=== PATIENT | female | born 1945 | race Caucasian/White ===

== ENCOUNTER 2021-04-08 13:48 | Outpatient (CLI) | payer OTHER ==
[2021-04-09 07:56] LABS: SARS-CoV-2 PCR by NAA Not Detected (NotDetected)
== END 2021-04-08 13:49 | disposition home or self-care (01) ==
LOC: CSHLAB 13:48
PROVIDERS: ATTEND Internal Medicine Gastroenterology
DX: Z20.822 Contact with and (suspected) exposure to COVID-19 (principal)
CPT/HCPCS: U0003; U0005

== ENCOUNTER 2021-04-11 11:24 | Outpatient (CLI) | payer OTHER | END 2021-04-11 11:25 | disposition home or self-care (01) | LOC: CSHRAD 11:24 | PROVIDERS: ATTEND Internal Medicine Gastroenterology | DX: R13.19 Other dysphagia (principal) | CPT/HCPCS: 74220 ==

== ENCOUNTER 2021-06-14 13:37 | Outpatient (CLI) | payer OTHER | END 2021-06-14 13:38 | disposition home or self-care (01) | LOC: CSHMAMMO 13:37 | PROVIDERS: ATTEND Internal Medicine | DX: Z12.31 Encounter for screening mammogram for malignant neoplasm of breast (principal); Z98.890 Other specified postprocedural states | CPT/HCPCS: 77063; 77067 ==

== ENCOUNTER 2022-03-10 10:14 | Outpatient (CLI) | payer OTHER | END 2022-03-10 10:15 | disposition home or self-care (01) | LOC: CSHCT 10:14 | PROVIDERS: ATTEND Internal Medicine | DX: E78.00 Pure hypercholesterolemia, unspecified (principal); Z82.49 Family history of ischemic heart disease and other diseases of the circulatory system; I25.10 Atherosclerotic heart disease of native coronary artery without angina pectoris | CPT/HCPCS: 75571 ==

== ENCOUNTER 2023-01-02 06:02 | Inpatient (IN) | payer MEDICARE ==
[2023-01-02] MEDS ORDERED: Aspirin 325 MG TAB ONE (06:25)
[2023-01-02] MEDS ORDERED: Nitroglycerin 2% Ointment 1 INCH/1 GM Packet ONE (06:25)
[2023-01-02] MEDS ORDERED: Nitroglycerin 0.4 MG TAB 1 EACH ONE (06:26)
[2023-01-02 06:28] LABS: #Basophils 0.1 10x3/uL (0.0-0.2); #Eosinphils 0.1 10x3/uL (0.0-0.5); #Neutrophils 8.9 10x3/uL (1.5-8.4); %Basophils 0.4 % (0.0-2.0); %Eosinophils 0.4 % (0.0-6.0); %Lymphocytes 29.8 % (18.0-47.0); %Monocytes 6.9 % (0.0-10.0); %Neutrophils 62.3 % (40.0-75.0); Hematocrit 39.9 % (34.9-44.5); Hemoglobin 13.8 g/dL (12.0-15.5); Mean Corpuscular HGB CONC 34.6 g/dL (32.0-36.0); Mean Corpuscular Hemoglobin 32.6 pg (27.0-33.0); Mean Corpuscular Volume 94.3 fl (81.6-98.3); Mean Platelet Volume 10.7 fl (7.4-10.4); Platelet Count 229 10x3/uL (150-450); RBC Distribution Width 12.2 % (11.5-14.5); Red Blood Cell (RBC) Count 4.23 10x6/uL (3.90-5.03); White Blood Cell (WBC) Count 14.3 10x3/uL (3.5-10.5)
[2023-01-02] MEDS ORDERED: Acetaminophen 500 MG TAB ONE (06:41)
[2023-01-02 06:45] LABS: ALT (SGPT) 14 U/L (8-55); AST (SGOT) 19 U/L (5-34); Alkaline Phosphatase 40 U/L (40-110); Anion Gap 17 mmol/L (10-20); BUN (Urea Nitrogen) 12 mg/dL (9.8-20.1); Bilirubin, Total 0.5 mg/dL (0.2-1.2); Calc. Creatinine Clearance 0 mL/min (70-130); Calcium 9.4 mg/dL (7.8-10.44); Carbon Dioxide 20 mmol/L (23-31); Chloride 104 mmol/L (98-107); Estimated GFR 72; Globulin 3.4 g/dL (2.4-3.5); Glucose 122 mg/dL (83-110); Potassium 4.1 mmol/L (3.5-5.1); Protein, Total 7.4 g/dL (5.8-8.1); Sodium 137 mmol/L (136-145)
[2023-01-02] MEDS ORDERED: Ondansetron ODT 4 MG TAB PO PRN (10:04)
[2023-01-02] MEDS ORDERED: Acetaminophen 325 MG TAB PO PRN (10:04)
[2023-01-02] MEDS ORDERED: Senokot S 8.6-50 MG TAB PO PRN (10:04)
[2023-01-02] MEDS ORDERED: Calcium Carbonate 500 MG ChewTAB PO PRN (10:04)
[2023-01-02] MEDS ORDERED: Iopamidol 300 61% 100 ML VIAL FS ONE (10:38)
[2023-01-02] MEDS ORDERED: Dextrose 5%-Lactated Ringers 1,000 ML IV SCH (11:00)
[2023-01-02] MEDS ORDERED: HYDROcodone/Acetaminophen 5/325 mg Tablet PO PRN ×2 (12:35→12:44)
[2023-01-02] MEDS ORDERED: Morphine 2 MG/ML VIAL SLOW IVP PRN (12:43)
[2023-01-02 13:21] VITALS: BMI 27.3
[2023-01-02] MEDS: Lactated Ringer's 1,000 ML IV SCH ×2 (14:29→21:08)
[2023-01-02] MEDS: Pantoprazole 40 MG VIAL IVP SCH (14:29)
[2023-01-02] MEDS: Labetalol HCl 100 MG/20 ML VIAL SLOW IVP PRN ×2 (16:49→21:07)
[2023-01-02] MEDS: fentaNYL 50 mcg/mL 1 mL Vial SLOW IVP PRN ×2 (16:51→21:05)
[2023-01-03] MEDS: Pantoprazole 40 MG VIAL IVP SCH ×2 (01:01→13:32)
[2023-01-03] MEDS: fentaNYL 50 mcg/mL 1 mL Vial SLOW IVP PRN (01:01)
[2023-01-03] MEDS ORDERED: Morphine 4 MG/ML VIAL SLOW IVP PRN (01:46)
[2023-01-03] MEDS: Lactated Ringer's 1,000 ML IV SCH ×3 (04:10→21:11)
[2023-01-03 05:32] LABS: #Basophils 0.1 10x3/uL (0.0-0.2); #Monocytes 1.1 10x3/uL (0.0-1.1); #Neutrophils 11.6 10x3/uL (1.5-8.4); %Basophils 0.5 % (0.0-2.0); %Eosinophils 0.3 % (0.0-6.0); %Lymphocytes 14.2 % (18.0-47.0); %Monocytes 7.2 % (0.0-10.0); %Neutrophils 77.3 % (40.0-75.0); Hematocrit 33.9 % (34.9-44.5); Hemoglobin 11.8 g/dL (12.0-15.5); Mean Corpuscular HGB CONC 34.8 g/dL (32.0-36.0); Mean Corpuscular Hemoglobin 33.2 pg (27.0-33.0); Mean Corpuscular Volume 95.5 fl (81.6-98.3); Platelet Count 195 10x3/uL (150-450); RBC Distribution Width 12.4 % (11.5-14.5); Red Blood Cell (RBC) Count 3.55 10x6/uL (3.90-5.03)
[2023-01-03] MEDS: Levothyroxine Sodium 75 MCG TAB PO SCH (05:36)
[2023-01-03 05:48] LABS: ALT (SGPT) 12 U/L (8-55); AST (SGOT) 20 U/L (5-34); Albumin 3.4 g/dL (3.4-4.8); Alkaline Phosphatase 30 U/L (40-110); Anion Gap 14 mmol/L (10-20); BUN (Urea Nitrogen) 7 mg/dL (9.8-20.1); Bilirubin, Total 0.5 mg/dL (0.2-1.2); Calc. Creatinine Clearance 64 mL/min (70-130); Calcium 8.5 mg/dL (7.8-10.44); Carbon Dioxide 20 mmol/L (23-31); Chloride 105 mmol/L (98-107); Estimated GFR 77; Globulin 2.9 g/dL (2.4-3.5); Glucose 118 mg/dL (83-110); Lipase 195 U/L (8-78); Potassium 4.2 mmol/L (3.5-5.1); Protein, Total 6.3 g/dL (5.8-8.1); Sodium 135 mmol/L (136-145)
[2023-01-03] MEDS: Ondansetron PF 4 MG/2 ML Vial IVP PRN ×2 (11:04→17:26)
[2023-01-03] MEDS: Labetalol HCl 100 MG/20 ML VIAL SLOW IVP PRN (12:07)
[2023-01-03] MEDS ORDERED: Morphine 2 MG/ML VIAL SLOW IVP PRN (12:23)
[2023-01-03] MEDS ORDERED: Mag-Al 1200 mg/1200 mg/30 ML UDCUP PO PRN (13:04)
[2023-01-03] MEDS ORDERED: Labetalol HCl 100 MG/20 ML VIAL SLOW IVP PRN (13:04)
[2023-01-03] MEDS: Acetaminophen 325 MG TAB PO PRN ×2 (13:33→23:23)
[2023-01-03] MEDS ORDERED: Amlodipine 5 MG TAB PO SCH (14:00)
[2023-01-03] MEDS: Morphine 2 MG/ML VIAL SLOW IVP PRN ×2 (15:13→17:25)
[2023-01-03] MEDS: Morphine 4 MG/ML VIAL SLOW IVP PRN (21:10)
[2023-01-03] MEDS: Docusate 100 MG CAP PO SCH (21:12)
[2023-01-03] MEDS: Amlodipine 5 MG TAB PO SCH (21:13)
[2023-01-04] MEDS: Pantoprazole 40 MG VIAL IVP SCH (02:42)
[2023-01-04] MEDS: Morphine 4 MG/ML VIAL SLOW IVP PRN ×2 (02:49→10:11)
[2023-01-04 04:17] LABS: #Eosinphils 0.1 10x3/uL (0.0-0.5); #Monocytes 1.4 10x3/uL (0.0-1.1); #Neutrophils 14.9 10x3/uL (1.5-8.4); %Basophils 0.2 % (0.0-2.0); %Eosinophils 0.3 % (0.0-6.0); %Lymphocytes 11.6 % (18.0-47.0); %Monocytes 7.5 % (0.0-10.0); %Neutrophils 79.8 % (40.0-75.0); Hematocrit 33.2 % (34.9-44.5); Hemoglobin 11.3 g/dL (12.0-15.5); Mean Corpuscular Hemoglobin 33.3 pg (27.0-33.0); Mean Corpuscular Volume 97.9 fl (81.6-98.3); Mean Platelet Volume 11.2 fl (7.4-10.4); Platelet Count 181 10x3/uL (150-450); RBC Distribution Width 12.9 % (11.5-14.5); Red Blood Cell (RBC) Count 3.39 10x6/uL (3.90-5.03); White Blood Cell (WBC) Count 18.7 10x3/uL (3.5-10.5)
[2023-01-04 04:26] LABS: Lipase 57 U/L (8-78); Phosphorus 2.4 mg/dL (2.3-4.7)
[2023-01-04 04:27] LABS: ALT (SGPT) 11 U/L (8-55); AST (SGOT) 20 U/L (5-34); Albumin 3.2 g/dL (3.4-4.8); Alkaline Phosphatase 30 U/L (40-110); Anion Gap 12 mmol/L (10-20); BUN (Urea Nitrogen) 4 mg/dL (9.8-20.1); Bilirubin, Total 0.6 mg/dL (0.2-1.2); Calc. Creatinine Clearance 62 mL/min (70-130); Calcium 8.6 mg/dL (7.8-10.44); Carbon Dioxide 23 mmol/L (23-31); Chloride 105 mmol/L (98-107); Estimated GFR 74; Glucose 132 mg/dL (83-110); Magnesium 1.7 mg/dL (1.6-2.6); Protein, Total 6.2 g/dL (5.8-8.1); Sodium 136 mmol/L (136-145)
[2023-01-04] MEDS: Lactated Ringer's 1,000 ML IV SCH ×2 (04:34→13:17)
[2023-01-04] MEDS: Levothyroxine Sodium 75 MCG TAB PO SCH (05:59)
[2023-01-04] MEDS: Ondansetron PF 4 MG/2 ML Vial IVP PRN (05:59)
[2023-01-04] MEDS: Amlodipine 5 MG TAB PO SCH (10:06)
[2023-01-04] MEDS: Docusate 100 MG CAP PO SCH ×2 (10:06→22:16)
[2023-01-04] MEDS ORDERED: Magnesium 2 GM/50 ML(in water) 2 GM in Premix 1 BAG IVPB SCH (11:15)
[2023-01-04] MEDS ORDERED: Erythromycin Base 0.5% Oint 1 GM TUBE EA EYE SCH (11:30)
[2023-01-04] MEDS: Acetaminophen 325 MG TAB PO PRN ×2 (12:18→22:29)
[2023-01-04] MEDS: Erythromycin Base 0.5% Oint 1 GM TUBE EA EYE SCH (22:16)
[2023-01-05] MEDS: Lactated Ringer's 1,000 ML IV SCH (02:38)
[2023-01-05 04:12] LABS: Bilirubin Neg (Negative); Blood, Urine 50 (Negative); Clarity Clear (Clear); Glucose, Urine (Dipstick) Normal (Negative); Ketone, Urine 50 mg/dL (Negative); Leukocyte Negative (Negative); Nitrite Negative (Negative); Protein, Urine (Dipstick) Negative (Neg-Trace); Urobilinogen Normal mg/dL (Less than 2)
[2023-01-05 04:30] LABS: RBC/HPF 0-3 HPF (0-3); Squamous Epithelial 0-3 HPF (0-3); WBC/HPF 0-3 HPF (0-3)
[2023-01-05 04:31] LABS: Bacteria/HPF Rare-Few HPF (None Seen)
[2023-01-05 04:57] LABS: #Eosinphils 0.1 10x3/uL (0.0-0.5); #Monocytes 0.7 10x3/uL (0.0-1.1); #Neutrophils 12.2 10x3/uL (1.5-8.4); %Basophils 0.3 % (0.0-2.0); %Eosinophils 0.4 % (0.0-6.0); %Lymphocytes 13.2 % (18.0-47.0); %Monocytes 4.6 % (0.0-10.0); %Neutrophils 81.1 % (40.0-75.0); Hematocrit 33.7 % (34.9-44.5); Hemoglobin 11.3 g/dL (12.0-15.5); Mean Corpuscular HGB CONC 33.5 g/dL (32.0-36.0); Mean Corpuscular Hemoglobin 32.6 pg (27.0-33.0); Mean Corpuscular Volume 97.1 fl (81.6-98.3); Mean Platelet Volume 11.4 fl (7.4-10.4); Platelet Count 180 10x3/uL (150-450); RBC Distribution Width 12.6 % (11.5-14.5); Red Blood Cell (RBC) Count 3.47 10x6/uL (3.90-5.03)
[2023-01-05 05:13] LABS: ALT (SGPT) 14 U/L (8-55); AST (SGOT) 24 U/L (5-34); Albumin 3.2 g/dL (3.4-4.8); Alkaline Phosphatase 41 U/L (40-110); Anion Gap 13 mmol/L (10-20); BUN (Urea Nitrogen) 5 mg/dL (9.8-20.1); Bilirubin, Total 0.6 mg/dL (0.2-1.2); Calc. Creatinine Clearance 63 mL/min (70-130); Calcium 8.7 mg/dL (7.8-10.44); Carbon Dioxide 24 mmol/L (23-31); Chloride 105 mmol/L (98-107); Estimated GFR 75; Globulin 3.2 g/dL (2.4-3.5); Glucose 105 mg/dL (83-110); Magnesium 2.2 mg/dL (1.6-2.6); Phosphorus 1.8 mg/dL (2.3-4.7); Potassium 3.9 mmol/L (3.5-5.1); Protein, Total 6.4 g/dL (5.8-8.1); Sodium 138 mmol/L (136-145)
[2023-01-05] MEDS: Acetaminophen 325 MG TAB PO PRN (05:21)
[2023-01-05] MEDS: Levothyroxine Sodium 75 MCG TAB PO SCH (05:21)
[2023-01-05] MEDS ORDERED: Amlodipine 5 MG TAB PO SCH (09:00)
[2023-01-05] MEDS: Docusate 100 MG CAP PO SCH (09:09)
[2023-01-05] MEDS: Erythromycin Base 0.5% Oint 1 GM TUBE EA EYE SCH (09:10)
[2023-01-05 10:37] VITALS: BP 138/65; TEMP 98.3
== END 2023-01-05 12:00 | disposition home or self-care (01) | DRG 440 ==
LOC: CSHERS 06:02 → CSHERHOLD 09:57 → CSHTELE 12:13 → OBSVTOIN 01-03 13:04
PROVIDERS: ADMIT Internal Medicine; ATTEND Hospitalist
DX: K85.90 Acute pancreatitis without necrosis or infection, unspecified (principal); E78.5 Hyperlipidemia, unspecified; N18.2 Chronic kidney disease, stage 2 (mild); M81.0 Age-related osteoporosis without current pathological fracture; I12.9 Hypertensive chronic kidney disease with stage 1 through stage 4 chronic kidney disease, or unspecified chronic kidney disease; Z98.890 Other specified postprocedural states; Z79.899 Other long term (current) drug therapy; Z90.49 Acquired absence of other specified parts of digestive tract; Z90.710 Acquired absence of both cervix and uterus; Z79.890 Hormone replacement therapy; Z88.5 Allergy status to narcotic agent; Z88.8 Allergy status to other drugs, medicaments and biological substances
CPT/HCPCS: 36415; 71045; 74177; 76705; 80053; 81001; 83690; 83735; 84100; 84478; 84484; 85025; 93005; 94760; 96360; 96361; 96374; 96375; 96376; C9113; G0378; J2270; J2272; J2405; J3010; J3475; J7120; Q0162; Q9967

== ENCOUNTER 2023-02-20 08:51 | Outpatient (CLI) | payer MEDICARE ==
[2023-02-20] MEDS ORDERED: Iopamidol 300 61% 100 ML VIAL FS ONE (09:41)
== END 2023-02-20 08:52 | disposition home or self-care (01) ==
LOC: CSHCT 08:51
PROVIDERS: ATTEND Physician Assistant Medical
DX: K85.90 Acute pancreatitis without necrosis or infection, unspecified (principal)
CPT/HCPCS: 74170; 82565

== ENCOUNTER 2024-12-06 16:24 | Emergency (ER) | payer MEDICARE ==
[~2024-12-06 16:24] MED LIST: Iopamidol 370 76% 100 ML VIAL ONE
[2024-12-06] MEDS ORDERED: Ondansetron PF 4 MG/2 ML Vial ONE (17:06)
[2024-12-06 17:14] LABS: #Basophils Less than 0.03 10x3/uL (0.0-0.2); #Eosinophils Less than 0.03 10x3/uL (0.0-0.5); #Monocytes 0.17 10x3/uL (0.0-1.1); #Neutrophils 5.97 10x3/uL (1.5-8.4); %Basophils 0.1 % (0.0-2.0); %Eosinophils 0.1 % (0.0-6.0); %Lymphocytes 38.3 % (18.0-47.0); %Monocytes 1.7 % (0.0-10.0); %Neutrophils 59.4 % (40.0-75.0); Hematocrit 44.7 % (34.9-44.5); Hemoglobin 14.6 g/dL (12.0-15.5); Mean Corpuscular Hemoglobin 32.4 pg (27.0-33.0); Mean Corpuscular Volume 99.3 fL (81.6-98.3); Platelet Count 233 10x3/uL (150-450); Red Blood Cell (RBC) Count 4.50 10x6/uL (3.90-5.03); White Blood Cell (WBC) Count 10.05 10x3/uL (3.5-10.5)
[2024-12-06 17:28] LABS: ALT (SGPT) 25 U/L (Less than 34); AST (SGOT) 32 U/L (11-34); Albumin 4.5 g/dL (3.1-4.5); Alkaline Phosphatase 46 U/L (40-110); Anion Gap 17 mmol/L (10-20); BUN (Urea Nitrogen) 25 mg/dL (9.8-20.1); Bilirubin, Total 0.4 mg/dL (0.3-1.2); Calc. Creatinine Clearance 0 mL/min (70-130); Calcium 10.1 mg/dL (7.8-10.44); Carbon Dioxide 19 mmol/L (23-31); Chloride 107 mmol/L (98-107); Globulin 3.2 g/dL (2.4-3.5); Glucose 170 mg/dL (83-110); Lipase 22 U/L (8-78); Potassium 4.0 mmol/L (3.5-5.1); Sodium 139 mmol/L (136-145)
[2024-12-06 17:34] LABS: Troponin I Less than 0.010 ng/mL (< 0.028)
[2024-12-06 18:34] LABS: Glucose, Urine (Dipstick) Normal (Negative); Leukocyte 100 (Negative); Protein, Urine (Dipstick) 30 mg/dl (Neg-Trace); Specific Gravity, Urine 1.020 (1.005-1.030)
[2024-12-06 18:52] LABS: Bacteria/HPF 1+ HPF (None Seen); CAUTI Indications for Culture Pelvic or flank pain; Mucous/LPF 1+ LPF (<2+); RBC/HPF 0-3 HPF (0-3)
[2024-12-06 18:53] LABS: Urine Culture Reflex No No
[2024-12-06] MEDS ORDERED: cefTRIAXone (ROCEPHIN) 1 GM VIAL ONE (19:31)
== END 2024-12-06 19:30 | disposition home or self-care (01) ==
LOC: CSHERS 16:24
DX: E86.0 Dehydration (principal); A08.4 Viral intestinal infection, unspecified; N39.0 Urinary tract infection, site not specified; I10 Essential (primary) hypertension
CPT/HCPCS: 74177; 80053; 81001; 83690; 84484; 85025; 93005; J0696; Q9967; 96374; 96375

== ENCOUNTER 2024-12-12 12:13 | Emergency (ER) | payer MEDICARE ==
[~2024-12-12 12:13] MED LIST changes: +Iopamidol 300 61% 100 ML VIAL FS ONE; -Iopamidol 370 76% 100 ML VIAL ONE
[2024-12-12 13:40] LABS: #Basophils 0.03 10x3/uL (0.0-0.2); #Eosinophils 0.03 10x3/uL (0.0-0.5); #Monocytes 0.41 10x3/uL (0.0-1.1); #Neutrophils 11.33 10x3/uL (1.5-8.4); %Basophils 0.2 % (0.0-2.0); %Eosinophils 0.2 % (0.0-6.0); %Lymphocytes 22.8 % (18.0-47.0); %Monocytes 2.7 % (0.0-10.0); %Neutrophils 73.3 % (40.0-75.0); Hematocrit 43.2 % (34.9-44.5); Hemoglobin 14.6 g/dL (12.0-15.5); Mean Corpuscular Hemoglobin 32.8 pg (27.0-33.0); Mean Corpuscular Volume 97.1 fL (81.6-98.3); Platelet Count 246 10x3/uL (150-450); Red Blood Cell (RBC) Count 4.45 10x6/uL (3.90-5.03); White Blood Cell (WBC) Count 15.46 10x3/uL (3.5-10.5)
[2024-12-12] MEDS ORDERED: Ondansetron PF 4 MG/2 ML Vial ONE (14:06)
[2024-12-12 14:13] LABS: ALT (SGPT) 19 U/L (Less than 34); AST (SGOT) 35 U/L (11-34); Albumin 4.2 g/dL (3.1-4.5); Alkaline Phosphatase 40 U/L (40-110); Anion Gap 18 mmol/L (10-20); BUN (Urea Nitrogen) 13 mg/dL (9.8-20.1); Bilirubin, Total 0.3 mg/dL (0.3-1.2); Calc. Creatinine Clearance 0 mL/min (70-130); Calcium 10.3 mg/dL (7.8-10.44); Carbon Dioxide 20 mmol/L (23-31); Chloride 105 mmol/L (98-107); Globulin 3.7 g/dL (2.4-3.5); Glucose 165 mg/dL (83-110); Potassium 3.6 mmol/L (3.5-5.1); Sodium 139 mmol/L (136-145)
[2024-12-12 16:14] LABS: Glucose, Urine (Dipstick) Normal (Negative); Leukocyte 500 (Negative); Protein, Urine (Dipstick) 15 mg/dl (Neg-Trace); Specific Gravity, Urine 1.010 (1.005-1.030)
[2024-12-12 16:59] LABS: CAUTI Indications for Culture Pelvic or flank pain; RBC/HPF 0-3 HPF (0-3)
[2024-12-12 17:00] LABS: Bacteria/HPF 1+ HPF (None Seen); Urine Culture Reflex No No
== END 2024-12-12 17:40 | disposition home or self-care (01) ==
LOC: CSHERS 12:13
DX: R11.2 Nausea with vomiting, unspecified (principal); I10 Essential (primary) hypertension
CPT/HCPCS: 36415; 74177; 80053; 81001; 83605; 83690; 85025; 96361; 96374; J2405; Q9967